=== PATIENT | male | born 1980 | race African-American/Black ===

== ENCOUNTER 2016-03-17 14:23 | Emergency (ER) | payer SELFPAY ==
[~2016-03-17] VITALS: Ht 165.1 cm; Wt 90.0 kg
[~2016-03-17 14:23] MED LIST: ACET500L PO; BACT800T5 PO; CLIN1CAP5 PO; NORC5TAB PO
[2016-03-17 14:25] VITALS: BP 124/76; PULSE 84; RESP 18; TEMP 98.4; O2SAT 95
[2016-03-17 14:27] VITALS: BP 142/90; PULSE 80; RESP 14; TEMP 98.2; O2SAT 98
--- NOTE | 2016-03-17 16:28 | PD ---
HPI Chief Complaint: Medical Clearance Time Seen by Provider: 16:11 Travel History International Travel<30 days: No Contact w/Intl Traveler<30days: No Traveled to known affect area: No History of Present Illness HPI 35-year-old Afro-[place] male coming in for follow-up recent visit 2 days ago for right-sided neck lymphadenopathy cellulitis. Patient was seen by Dr. Becerra at that time. Patient was placed on clindamycin and Bactrim, after having CT of the neck. Patient was requested to come back for follow-up. Patient states he is back to his normal self. He has no pain, fever, bloody swallowing, or difficulty moving the neck. He states the swelling is resolved. Patient needs a note to return to work. He has no known drug allergies. PFSH Past Medical History Diminished Hearing: No Immunizations Current: Yes Social History Alcohol Use: Yes (1-2 DRINKS WEEKLY) Tobacco Use: Yes (1-CIGAR DAILY) Substance Use: No Allergies-Medications (Allergen,Severity, Reaction): Coded Allergies: No Known Allergies (Verified , 03/05/16) Reported Meds & Prescriptions Reported Meds & Active Scripts Active [place] (Hydrocodone-Acetaminophen) 5-325 mg Tab 1 Tab PO Q6H PRN Clindamycin (Clindamycin HCl) 150 Mg Cap 2 Tab PO Q6H Bactrim DS (Sulfamethoxazole-Trimethoprim) 800-160 Mg Tab 1 Tab PO BID Acetaminophen Extra Strength Liq (Acetaminophen) 500 Mg/15 Ml Soln 500 Mg PO Q6HR PRN 7 Days Review of Systems Except as stated in HPI: all other systems reviewed are Neg General / Constitutional: No: Fever Eyes: No: Visual changes HENT: No: Headaches Cardiovascular: No: Chest Pain or Discomfort Respiratory: No: Shortness of Breath Gastrointestinal: No: Abdominal Pain Genitourinary: No: Dysuria Musculoskeletal: No: Pain Skin: No Rash Neurologic: No: Weakness Psychiatric: No: Depression Endocrine: No: Polydipsia Hematologic/Lymphatic: No: Easy Bruising Physical Exam Narrative GENERAL: Patient appears no acute distress. SKIN: Warm and dry. Normal color. Normal turgor. HEAD: Atraumatic. Normocephalic. EYES: Pupils equal and round. No scleral icterus. No injection or drainage. ENT: No nasal bleeding or discharge. Mucous membranes pink and moist. Pharynx is normal. Airway is patent. NECK: Trachea midline. No JVD. Neck is supple without significant lymphadenopathy. CARDIOVASCULAR: Regular rate and rhythm. RESPIRATORY: No accessory muscle use. Clear to auscultation. Breath sounds equal bilaterally. MUSCULOSKELETAL: Extremities without clubbing, cyanosis, or edema. No obvious deformities. NEUROLOGICAL: Awake and alert. No obvious cranial nerve deficits. Motor grossly within normal limits. Five out of 5 muscle strength in the arms and legs. Normal speech. PSYCHIATRIC: Appropriate mood and affect; insight and judgment normal. Data Data Last Documented VS Vital Signs Date Time Temp Pulse Resp B/P Pulse Ox O2 Delivery O2 Flow Rate FiO2 03/17/16 14:27 98.2 80 14 142/90 98 MDM Medical Decision Making Medical Screen Exam Complete: Yes Emergency Medical Condition: Yes Differential Diagnosis Tonsillar abscess. Dental abscess. Lymphangitis. Pharyngitis. Narrative Course Patient appears to be resolving very well. Patient is to complete his antibiotics as previously prescribed. Work note is given to the patient to return to work without restrictions. Patient is to follow-up only if symptoms return or worsen. Diagnosis Primary Impression: Cellulitis Qualified Code: L03.221 - Cellulitis of neck Patient Instructions: General Instructions Departure Forms: Work Release Enter return to work date: Mar 18, 2016 Additional Instructions: Patient appears to be resolving very well. Patient is to complete his antibiotics as previously prescribed. Work note is given to the patient to return to work without restrictions. Patient is to follow-up only if symptoms return or worsen. Med/Other Pt SpecificInfo: No Change to Meds Disposition: 01 DISCHARGE HOME Condition: Stable Migue Gamble Mar 17, 2016 16:28
== END 2016-03-17 16:46 | disposition home or self-care (01) ==
LOC: NEPB 14:23
DX: L03.221 Cellulitis of neck (principal); Z72.0 Tobacco use
CPT/HCPCS: 99281

== ENCOUNTER 2017-08-02 15:36 | Emergency (ER) | payer SELFPAY ==
[~2017-08-02] VITALS: Ht 165.1 cm; Wt 80.0 kg
[~2017-08-02 15:36] MED LIST changes: -ACET500L PO; +CLIN150C14 PO; -CLIN1CAP5 PO
[2017-08-02 15:39] VITALS: BP 136/63; PULSE 117; RESP 16; TEMP 99.2; O2SAT 99
[2017-08-02] MEDS ORDERED: DEXAMETHASONE SOD PHOS 4 MG/ML VIAL IM ONE (16:45)
[2017-08-02] MEDS ORDERED: CLINDAMYCIN PHOS 600 MG/4 ML VIAL IM ONE (16:45)
[2017-08-02] MEDS ORDERED: SULFAMETHOXAZOLE-TRIMETHOPRIM DS 800-160 MG TAB PO ONE (16:45)
--- NOTE | 2017-08-02 16:55 | PD ---
HPI Chief Complaint: ENT Complaint Time Seen by Provider: 16:24 Travel History International Travel<30 days: No Contact w/Intl Traveler<30days: No Traveled to known affect area: No History of Present Illness HPI 36-year-old male presents emergency department for evaluation of right ear pain and neck swelling that started 2-3 days ago. Says that he has had some difficulty swallowing and opening his jaw because of the swelling and pain. He denies any drooling, dysphagia, neck pain, stiff neck. Says his pain is focused in the right ear and described as sharp. Says he had chills and some sweats last night which prompted him to come to the emergency department today. He denies cough or congestion. Denies fevers or chills. Denies shortness of breath or chest pain. He says he has a history of something similar occurring approximately a year ago and was given steroids and antibiotics. Says that this episode is not as bad as his previous episodes. He denies chronic medical issues medication use. He does not have a primary care physician. PFSH Past Medical History Diminished Hearing: No Immunizations Current: Yes Social History Alcohol Use: Yes (1-2 DRINKS WEEKLY) Tobacco Use: Yes (1-CIGAR DAILY) Substance Use: No Allergies-Medications (Allergen,Severity, Reaction): Coded Allergies: No Known Allergies (Verified Adverse Reaction, Unknown, 08/02/17) Reported Meds & Prescriptions Reported Meds & Active Scripts Active Clindamycin (Clindamycin HCl) 300 Mg Cap 300 Mg PO Q6H 10 Days Bactrim DS (Sulfamethoxazole-Trimethoprim) 800-160 Mg Tab 1 Tab PO BID Review of Systems Except as stated in HPI: all other systems reviewed are Neg Physical Exam Narrative GENERAL: Well-nourished, well-developed patient, in NAD SKIN: Focused skin assessment warm/dry. No rashes or lesions. HEAD: Normocephalic. Atraumatic. EYES: No scleral icterus. No injection or drainage. PERRLA, EOMI Mild trismus, difficulty assessing pharynx. Voice not muffled. No drooling. Neck mild anterior right cervical edema without obvious impingement on the midline. Nonindurated. Neck is supple. Trachea midline. No JVD. No meningismus. No tenderness to palpation Tympanic membranes pearly goyal without bulging. Mild erythema of the ear canal leading to the tympanic membranes CARDIOVASCULAR: Regular rate and rhythm without murmurs, gallops, or rubs. RESPIRATORY: Breath sounds equal bilaterally. No accessory muscle use. No wheezes, rales, or rhonchi MUSCULOSKELETAL: No cyanosis, or edema. BACK: Nontender without obvious deformity. No CVA tenderness. Data Data Last Documented VS Vital Signs Date Time Temp Pulse Resp B/P (MAP) Pulse Ox O2 Delivery O2 Flow Rate FiO2 08/02/17 15:39 99.2 117 16 136/63 (87) 99 Orders Orders Clindamycin Inj (Cleocin Inj) (08/02/17 16:45) Dexamethasone Inj (Decadron Inj) (08/02/17 16:45) Sulfamet-Trimeth Ds 800-160 Mg (Bactrim (08/02/17 16:45) Ed Discharge Order (08/02/17 17:11) [facility] Medical Decision Making Medical Screen Exam Complete: Yes Emergency Medical Condition: Yes Differential Diagnosis Right-sided pharyngitis, cellulitis, abscess Narrative Course 36-year-old male presents emergency department for evaluation of right ear pain and neck swelling that started 2-3 days ago. Says that he has had some difficulty swallowing and opening his jaw because of the swelling and pain. He denies any drooling, dysphagia, neck pain, stiff neck. Says his pain is focused in the right ear and described as sharp. Says he had chills and some sweats last night which prompted him to come to the emergency department today. He denies cough or congestion. Denies fevers or chills. Denies shortness of breath or chest pain. He says he has a history of something similar occurring approximately a year ago and was given steroids and antibiotics. Says that this episode is not as bad as his previous episodes. He denies chronic medical issues medication use. He does not have a primary care physician. Vital signs are stable. Note that patient was slightly tachycardic. I believe this was secondary to anxiety. Physical exam findings consistent with developing cellulitis versus lymphadenopathy versus pharyngitis on the right. His neck is supple. No induration. No meningismus. He does have some trismus and has difficulty fully opening his jaw. There is no muffled voice or drooling. He has full range of motion of his neck. He has no pain with palpation. Review the EMR. Appears that patient had a significant episode of cellulitis of the right neck area. He had IV antibiotics and imaging. He did not require admission. Patient says that this episode is not as severe as his previous episode. I offered testing including labs and imaging studies. Patient and mother would like to defer I would like to have a trial of antibiotics prior to obtaining further imaging and testing. Clindamycin 600 mg IM, Bactrim DS, dexamethasone 4 mg IM administered emergency department today. Patient will be discharged clindamycin and Bactrim. Advised to allow 1-2 days for the medication to begin working before returning however, advised that if it did worsen to return to the emergency department immediately for evaluation. Follow-up with ear nose and throat and primary care physician for further evaluation. He and his mother state understanding and will comply. Diagnosis Primary Impression: Cellulitis Qualified Codes: K12.2 - Cellulitis and abscess of mouth Referrals: Ear / Nose / Throat Specialist Primary Care Physician Additional Instructions: Take all medications as prescribed. I highly recommend he follow-up with primary care physician and consider learning operations specialist for further evaluation. If your symptoms persist or worsen return to emergency department immediately. Scripts Clindamycin (Clindamycin) 300 Mg Cap 300 MG PO Q6H for Infection for 10 Days, #40 CAP 0 Refills Prov: Aleksandr Thibodeaux MD 08/02/17 Sulfamethoxazole-Trimethoprim (Bactrim DS) 800-160 Mg Tab 1 TAB PO BID for Infection, #20 TAB 0 Refills Prov: Aleksandr Thibodeaux MD 08/02/17 Disposition: 01 DISCHARGE HOME Condition: Stable Alma Rosa Cook August 02, 2017 16:55
[2017-08-02] MEDS ORDERED: BACT800T5 PO (17:11)
[2017-08-02] MEDS ORDERED: CLIN300C5 PO (17:11)
== END 2017-08-02 17:23 | disposition home or self-care (01) ==
LOC: PHEFT 15:36
DX: K12.2 Cellulitis and abscess of mouth (principal); R13.10 Dysphagia, unspecified; R22.1 Localized swelling, mass and lump, neck; Z72.0 Tobacco use
CPT/HCPCS: 96372; 99283; J1100